=== PATIENT | female | born 1955 | race Caucasian/White ===

== ENCOUNTER 2023-07-26 12:34 | Emergency (ER) | payer MEDICARE, SELFPAY ==
--- NOTE | ~2023-07-26 | XR_ITS ---
EXAMINATION: XR hip BI 2V w AP pelvis DATE: 07/26/2023 13:41 INDICATION: Pelvic pain post fall TECHNIQUE: Anteroposterior view of the pelvis and anteroposterior and frog-leg lateral views of the l eft hip and anteroposterior and frog-leg lateral views of the right hip and were obtained. COMPARISON: None. FINDINGS: Alignment is normal. No fractures. Bilateral hip joint spaces appear normal. Mild bilateral sacroilia c osteoarthritis. At least moderate lower lumbar spondylosis. IMPRESSION: 1. No acute osseous abnormality. Reviewed, dictated and finalized at location A.
--- NOTE | ~2023-07-26 | XR_ITS ---
XR ankle RT min 3V 07/26/2023 13:41 Indication: Status post fall. Right ankle pain. Procedure: 4 views right ankle Comparison: No prior studies for comparison. Findings: No fracture, subluxation or dislocation. There is polyarticular osteoarthritis. There is in ternal fixation of the first metatarsal head. Ankle mortise intact. Impression: 1: No acute fracture. Reviewed, dictated and finalized at location B. Impression: 1: No acute fracture.
--- NOTE | ~2023-07-26 | XR_ITS ---
EXAMINATION: XR knee RT 3V DATE: 07/26/2023 13:41 INDICATION: Right knee injury and pain. TECHNIQUE: 3 views of right knee were obtained. COMPARISON: None. FINDINGS: Bone alignment is normal. No fracture. There is mild tricompartmental osteoarthritis. There is a small knee joint effusion. IMPRESSION: 1. Mild right knee osteoarthritis. 2. Small right knee joint effusion. Reviewed, dictated and finalized at location E.
--- NOTE | ~2023-07-26 | XR_ITS ---
EXAMINATION: XR forearm RT 2V DATE: 07/26/2023 13:41 INDICATION: Right forearm injury. TECHNIQUE: 2 views of right forearm were obtained. COMPARISON: None. FINDINGS: There is a fracture of radial head/neck junction with mild impaction. Joint spaces are norm al. There is a large elbow joint effusion. IMPRESSION: 1. Fracture of radial head/neck junction. 2. Large elbow joint effusion. Reviewed, dictated and finalized at location E.
--- NOTE | ~2023-07-26 | XR_ITS ---
EXAMINATION: XR elbow RT min 3V DATE: 07/26/2023 13:41 INDICATION: Right elbow injury and pain. TECHNIQUE: 3 views of right elbow were obtained. COMPARISON: None. FINDINGS: Bone alignment is normal. There is a fracture of the radial head/neck junction with mild im paction. Joint spaces are normal. There is a large elbow joint effusion. IMPRESSION: 1. Fracture of radial head/neck junction. 2. Large elbow joint effusion. Reviewed, dictated and finalized at location E.
[2023-07-26 12:38] VITALS: BP 156/78; PULSE 66; RESP 20; TEMP 36.4; O2SAT 100
--- NOTE | 2023-07-26 13:32 | ED.GENADULT ---
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 She typically gets around with a wheeled sit and stand walker Today she tripped and fell on to her right side, hitting her right arm and right knee She complains most of pain to her right elbow /forearm Related Data Allergies Allergy/AdvReac Type Severity Reaction Status Date / Time No Known Allergies Allergy Verified 07/26/23 12:34 Review of Systems Review of Systems: CONSTITUTIONAL: Denies fever, chills, or sweats. EYES: Denies visual changes, redness, or discharge. ENT: Denies rhinorrhea, congestion, sore throat, or otalgia. CARDIOVASCULAR: Denies chest pain, palpitations, or edema. RESPIRATORY: Denies cough or dyspnea. GASTROINTESTINAL: Denies abdominal pain, nausea, vomiting, or diarrhea. GENITOURINARY: Denies dysuria or hematuria. SKIN: Denies rash or itching. MUSCULOSKELETAL: ground level fall today pain to right elbow/ right forearm and right knee NEUROLOGIC: Denies headache, numbness, dizziness, or weakness. PSYCHIATRIC: Denies anxiety or depression. PMFSH Family History Family History Father Family history of diabetes mellitus in first degree relative Family history of heart disease in male family member before age 55 Mother Family history of malignant neoplasm of thyroid Family history of malignant neoplasm of kidney Other Cerebrovascular accident Family history of kidney disease Social History Social History Alcohol intake: never Exam Narrative: GENERAL: Well-appearing, well-nourished, and in no acute distress. HEAD: Normocephalic, atraumatic. EYES: PERRLA and EOMI. ENT: Nares clear, no rhinorrhea or epistaxis. Mucous membranes moist. Oropharynx without tonsillar hypertrophy exudate or other lesions. NECK: Supple. No adenopathy or masses. No carotid bruits or JVD CHEST: Clear to auscultation. No respiratory distress. No wheezes rales or rhonchi HEART: Regular rate and rhythm. No murmur heard. Normal peripheral pulses. ABDOMEN: Soft, nontender, nondistended, normal active bowel sounds. EXTREMITIES: decrease ROM to right elbow / +bruising and swelling to right knee. SKIN: Warm, dry, no rash. NEURO: No focal deficits. Alert and oriented x3. PSYCH: Normal mood and affect. Course Vital Signs Vital signs: Vital Signs Temperature 36.4 C 07/26/23 12:38 Pulse Rate 66 07/26/23 12:38 Respiratory Rate 20 07/26/23 12:38 Blood Pressure 156/78 H 07/26/23 12:38 Pulse Oximetry 100 07/26/23 12:38 Oxygen Delivery Room Air 07/26/23 12:38 Temperature 36.4 C 07/26/23 12:38 Pulse Rate 84 07/26/23 15:54 Respiratory Rate 20 07/26/23 15:54 Blood Pressure 141/74 H 07/26/23 15:54 Pulse Oximetry 97 07/26/23 15:54 Oxygen Delivery Room Air 07/26/23 12:38 Medical Decision Making [facility] Narrative Medical decision making narrative: 68 y/o female who present with complains of ground level mechanical fall today about 30 mins GLOBE MOUNTER, Striking her right arm and right knee on the ground She denies hitting her head / no LOC No pain to shoulder with palpation / ROM intact decrease ROM to right elbow / +bruising and swelling to right knee. bandaid to lateral right ankle from a chronic ulcer that is healing distal pulses present NO abdominal pain/ back pain NO palpable hip /pelvic pain with palpation Concern for fracture/ contusion plan to treat her pain and check X rays of right forearm/ right elbow/ right knee/ right ankle/ and Bl hip with pelvis Imaging is showing 1 Fracture of radial head/neck junction. 2. Large elbow joint effusion. Mild right knee osteoarthritis. 2. Small rig
[2023-07-26] MEDS: KETOROLAC 30 MG/ML VIAL (*BKC) IM (13:48)
[2023-07-26] MEDS: HYDROcodone/acetaminophen (*CRX) 5-325 MG TABLET 1 TAB PO (13:48)
[2023-07-26 15:54] VITALS: BP 141/74; PULSE 84; RESP 20; O2SAT 97
--- NOTE | 2023-07-26 15:56 | PC.NURSE ---
patient refused nancy wrap
== END 2023-07-26 15:57 | disposition home or self-care (01) ==
PROVIDERS: Emergency Provider Nurse Practitioner Family
DX: S52.121A Displaced fracture of head of right radius, initial encounter for closed fracture (principal); G72.41 Inclusion body myositis [IBM]; W01.0XXA Fall on same level from slipping, tripping and stumbling without subsequent striking against object, initial encounter
CPT/HCPCS: 29105; 73080; 73090; 73521; 73562; 73610; 96372; 99284; A4565; A9270; J1885